=== PATIENT | female | born 1930 | race Caucasian/White ===

== ENCOUNTER 2020-04-13 18:48 | Emergency (ER) | payer MEDICARE, MEDICAID ==
[~2020-04-13] VITALS: Ht 165.1 cm; Wt 72.0 kg
[~2020-04-13 18:48] MED LIST: 2; 2 BP MEDS; AMLODIPINE5 MG PO; ASPIR-8181 MG OR; BABY ASPIRIN81 MG PO; BETAMETH DIP0.05 % EX; CARTIA XT240 MG/24 OR; CIPROFLOXACN500 MG PO; GENTAMICIN 10 MG/ML IV; HUMALOG100 MG/ML; HYDROCHLOROT25 MG PO; LOSARTAN POT50 MG PO; NOVOLOG MIX100 U/ML SC; ONDANSETRON4 MG PO; POT CHLORIDE PO; PRILOSEC20 MG PO; RESTORIL15 MG OR; TENORMIN25 MG PO; WARFARIN3 MG OR; [UNRECOGNIZED DRUG - CODE] PO; [UNRECOGNIZED DRUG - OTHER]; [UNRECOGNIZED DRUG - REMARK]
[2020-04-13] MEDS ORDERED: KEFLEX500 M1 PO (20:02)
[2020-04-13 20:30] VITALS: BP 147/72
== END 2020-04-13 20:56 | disposition home or self-care (01) ==
LOC: ED 18:48
DX: S51.021A Laceration with foreign body of right elbow, initial encounter (principal); E11.9 Type 2 diabetes mellitus without complications; I10 Essential (primary) hypertension; W01.0XXA Fall on same level from slipping, tripping and stumbling without subsequent striking against object, initial encounter; Y92.481 Parking lot as the place of occurrence of the external cause; Z79.4 Long term (current) use of insulin

== ENCOUNTER 2020-12-04 05:02 | Observation (INO) | payer MEDICARE, MEDICAID ==
[~2020-12-04] VITALS: Ht 165.1 cm; Wt 72.0 kg
[~2020-12-04 05:02] MED LIST changes: +KEFLEX500 M1 PO
--- NOTE | 2020-12-04 05:03 | NUR ---
BY EMS TO ROOM. AMBULATED TO STRETCHER
--- NOTE | 2020-12-04 05:35 | NUR ---
Reassessment of patient completed. No distress noted.
[2020-12-04 05:46] LABS: HEMATOCRIT 44.3 % (37.0-47.0); HEMOGLOBIN 14.6 g/dl (12.0-16.0); IMMATURE GRANULOCYTES 0.4 % (0.0-5.0); MEAN CELL VOLUME 90.2 fL CALC (80.0-100.0); MEAN CORPUSCULAR HGB 29.7 pG CALC (26.0-32.0); NEUT# 4.8 thou/uL (2.00-7.15); RED BLOOD COUNT 4.91 mill/uL (4.20-5.60); RED CELL DISTRI WIDTH 13.5 % (11.5-15.5)
[2020-12-04 05:48] LABS: URINE BILIRUBIN - DIPSTICK NEGATIVE (NEGATIVE); URINE BLOOD DIPSTICK TRACE-INTACT (NEGATIVE); URINE COLOR YELLOW; URINE GLUCOSE - DIPSTICK >=1000 mg/dL (NEGATIVE); URINE KETONE NEGATIVE (NEGATIVE); URINE LEUK ESTERASE TRACE (NEGATIVE); URINE PH 6.5 (4.5-8.0); URINE PROTEIN - DIPSTICK NEGATIVE (NEG-TRACE); URINE UROBILINOGEN - DIPSTICK 0.2 E.U./dL (0.2)
[2020-12-04 05:55] LABS: URINE NITRITE - DIPSTICK NEGATIVE (Negative)
[2020-12-04 06:00] LABS: ALKALINE PHOSPHATASE 99 u/l (38-126); BILIRUBIN, TOTAL 0.7 mg/dL (0.0-1.4); BUN 18 mg/dL (8-23); BUN/CREATININE RATIO 33 (12-20 (CALC)); CHLORIDE 94 mmol/l (95-108); CREATININE 0.5 mg/dL (0.5-1.0); GFR > 60 ML/MIN (>=60 (CALC)); GFR FOR AFR.AMER. > 60 ML/MIN (>=60 (CALC)); SGOT/AST 31 u/l (9-36); SODIUM 132 mmol/l (137-146); TOTAL PROTEIN 7.3 g/dL (6.3-8.2)
[2020-12-04 06:01] LABS: MAGNESIUM 1.3 mg/dL (1.6-2.3)
--- NOTE | 2020-12-04 06:02 | NUR ---
Reassessment of patient completed. No distress noted. DAUGHTER IN ROOM WITH PATIENT.
[2020-12-04 06:04] LABS: ACT PARTIAL THROMBO TIME 24.1 SECONDS (20.0-32.5)
[2020-12-04 06:05] LABS: ANION GAP 17 (6-22 (CALC)); CARBON DIOXIDE 25 mmol/l (22-30); POTASSIUM 3.7 mmol/l (3.5-5.1)
[2020-12-04 06:10] LABS: INTERNATIONAL NORMALIZED RATIO 1.1 RATIO (0.7-1.3); PROTHROMBIN TIME 11.5 SECONDS (9.0-12.5)
[2020-12-04 06:14] LABS: MYOGLOBIN 41 ng/mL (0 - 62)
[2020-12-04] MEDS ORDERED: TRESIBA FL100 UNIT/M SC (06:17)
[2020-12-04] MEDS ORDERED: FIASP FLEX100 UNIT/M SC (06:18)
[2020-12-04 06:34] LABS: TSH, 3RD GENERATION 6.75 uIU/mL (0.47 - 4.68)
--- NOTE | 2020-12-04 06:54 | NUR ---
SBAR PRINTED TO FLOOR
--- NOTE | 2020-12-04 07:00 | NUR ---
REPORT RECEIVED FROM ADRYAN HSU. PT PENDING ADMISSION. STABLE. NO CONCERNS VOICED.
--- NOTE | 2020-12-04 07:12 | NUR ---
RECHKD BGL 231
--- NOTE | 2020-12-04 08:00 | NUR ---
BREAKFAST PROVIDED TO PT. DAUGHTER AT BEDSIDE. VITALS STABLE. NO DISTRESS NOTED.
--- NOTE | 2020-12-04 08:37 | NUR ---
PT AMBULATING TO BATHROOM WITH STEADY GAIT.
--- NOTE | 2020-12-04 08:53 | NUR ---
REPORT GIVEN TO ADELA ON [facility].
--- NOTE | 2020-12-04 08:53 | NUR ---
RECIEVED REPORT FROM SEPTEMBER, RN
--- NOTE | 2020-12-04 09:01 | NUR ---
PT ARRIVED TO [facility] ROOM 263 VIA PORTABLE ACCOMPAINED BY ER STAFF WITH DAUGHTER AT BEDSIDE. PT IS A/O X3. ASSESSMENT AND VITALS COMPLETED.BP 169/85, HR 68, O2 94% ON ROOM AIR. RESPIRATIONS ARE EVEN AND UNLABORED ON ROOM AIR. LUNG SOUNDS ARE CLEAR. HEART RHYTYHM IS NORMAL WITH TELE IN PLACE, 8620. RADIAL PULSES STRONG. PEDAL PULSES WEAK. 1+ EDEMA NOTED TO BLE. SKIN INTACT. #22G EMS IN LAC PAINFUL. NEW IV TO BE STARTED.ACCUCHECK REUSLTING IN 136, LEVEMIR ADMINISTERED. PT DENIES OF ANY PAINS OR DISCOMFORTS AT THIS TIME.CHEMICAL MILLING PROCESSOR AWARE OF ALLERGIES, ALLERGY AND FALL RISK BAND APPLIED. PT ORIENTED TO ROOM AND CALL SYSTEM. ALL SAFETY PRECAUTIONS ARE IN PLACE WITH CALL LIGHT IN REACH. WILL CONTINUE TO MONITOR.
[2020-12-04 09:08] VITALS: BP 169/85
--- NOTE | 2020-12-04 10:18 | NUR ---
DR PRESTON AT BEDSIDE
--- NOTE | 2020-12-04 10:43 | NUR ---
NEW #22G STARTED IN RAC, FLUIDS INFUSING PER ORDE SITE REMAINS HEALTHY AND PATENT. #22G IN LAC REMOVED WITH CATAHTER STILL INTACT.
--- NOTE | 2020-12-04 11:12 | NUR ---
ACCUCHECK RELTING IN 66, ORANGE JUICE AND SNACK PROVIDED.
[2020-12-04 13:02] VITALS: BP 175/84
--- NOTE | 2020-12-04 13:05 | NUR ---
REASSESSMENT OF BP REUSLTING IN , HR 69. D.TONE,ANRP NOTFIED. NEW ORDERS TO BE OBTAINED.
[2020-12-04 15:06] VITALS: BP 170/73
--- NOTE | 2020-12-04 15:37 | NUR ---
APRESOLINE IV ADMINISTERED BY ADRYAN GIL
--- NOTE | 2020-12-04 15:43 | NUR ---
PT SLEEPING IN SEMI FOWLERS POSITION. REPSIRATIONS ARE EVEN AND UNLABORED WITH NO DISTRESS NOTED. TELE MONITORING IN PLACE. #22G IN RAC INFUSING WITH IVF PER ORDER, SITE REMAINS HEALTHY AND PATENT. NO SIGNS OF ANY PAINS OR DISCOMFORTS. ALL SAFETY PRECAUTIONS ARE IN PLACE WITH CALL LIGHT IN REACH. WILL CONTINUE TO MONITOR.
[2020-12-04 17:09] VITALS: BP 138/71
--- NOTE | 2020-12-04 17:09 | NUR ---
REASSESSMENT OF BP RUSLTING IN 138/71, HR 67. RESPIRATIONS REMAINS EVEN AND UNLABORED WITH NO DISTRESS NOTED. PT DENIES OF ANY NEEDS AT THISA TIME. ALL SAFETY PRECAUTIONS ARE IN PLACE WITH CALL LIGHT IN REACH. WILL CONTINUE TO MONITOR.
[2020-12-04 19:00] VITALS: BP 162/76
--- NOTE | 2020-12-04 20:00 | NUR ---
PHYSICAL ASSESMENT COMPLETE. PT CURRENTLY DENIES PAIN OR DISCOMFORT. SCHEDULED MEDICATIONS AND PRN MEDICATION ADMINISTERED, SEE E-MAR. PT DENIES ANY NEEDS AT THIS TIME. PLAN OF CARE REVIEWED, PT DENIES QUESTIONS, VERBALIZES UNDERSTANDING. ITEMS WITHIN REACH, BED LOCKED IN LOW POSITION W/ BEDRAILS UP X2. CALL CH WITHIN REACH, AGREES TO CALL PRN.
[2020-12-05] VITALS: BP 161/78
--- NOTE | 2020-12-05 | NUR ---
PT LAYING IN BED WITH EYES CLOSED, APPEARS TO BE SLEEPING, APPEARS COMFORTABLE AND IN NO DISTRESS. RESPIRATIONS REGULAR AND UNLABORED. ITEMS REMAIN WITHIN REACH, CALL CH REMAINS WITHIN REACH. BED REMAINS LOCKED AND IN LOW POSITION WITH BEDRAILS UP X2. WILL CONTINUE TO MONITOR.
[2020-12-05 04:00] VITALS: BP 179/86
--- NOTE | 2020-12-05 04:00 | NUR ---
PT RESTING IN BED, NO SIGNS OF DISTRESS NOTED, RESP EVEN AND UNLABORED. PT VOICES NO NEEDS OR COMPLAINTS AT THIS TIME. CALL LIGHT IN REACH, CONTINUE TO MONITOR.
[2020-12-05 05:00] VITALS: BP 151/62
[2020-12-05 06:44] LABS: HEMATOCRIT 42.3 % (37.0-47.0); HEMOGLOBIN 14.2 g/dl (12.0-16.0); MEAN CELL VOLUME 89.6 fL CALC (80.0-100.0); MEAN CORPUSCULAR HGB 30.1 pG CALC (26.0-32.0); MEAN CORPUSCULAR HGB CONC 33.6 g/dL CAL (32.0-36.0); RED BLOOD COUNT 4.72 mill/uL (4.20-5.60); RED CELL DISTRI WIDTH 13.6 % (11.5-15.5)
--- NOTE | 2020-12-05 07:00 | NUR ---
RECIEVED REPOPRT FROM ADRYAN MARTINEZ
[2020-12-05 07:02] LABS: ANION GAP 11 (6-22 (CALC)); BUN 10 mg/dL (8-23); BUN/CREATININE RATIO 21 (12-20 (CALC)); CARBON DIOXIDE 26 mmol/l (22-30); CHLORIDE 103 mmol/l (95-108); CREATININE 0.5 mg/dL (0.5-1.0); GFR > 60 ML/MIN (>=60 (CALC)); GFR FOR AFR.AMER. > 60 ML/MIN (>=60 (CALC)); POTASSIUM 3.5 mmol/l (3.5-5.1); SODIUM 138 mmol/l (137-146)
[2020-12-05 07:07] LABS: MAGNESIUM 1.7 mg/dL (1.6-2.3)
--- NOTE | 2020-12-05 08:07 | NUR ---
PT. ASSISTED TO BSC WITH MODERATE ASSISTANCE. PT REPORTS NAUSEA. 300 ML CLOUDY YELLOW URINE NOTED. PT ASSISTED BACK TO BED, TOLERATED ACTIVITY WELL. NOTIFIED BY ALDO SIMPSON IN ED OF HR MAX OF 170'S AND 4 BEATS VTACH DURING ACTIVTY TO BSC. ADRYAN CHAPMAN NOTIFIED OF TELE READINGS AND NAUSEA.
--- NOTE | 2020-12-05 08:07 | NUR ---
UROLOGIST CALL STATING PT WAS IN VTACH. UPON ENTERING ROOM PT WAS USING BSC AND STATED SHE WAS HAVINIG NAUSEA BUT WAS OK. RT TO COMPLETE EKG. PT TO BE MEDICATED PER NAUSEA. MD NOTIFIED. ALL SAFETY PRECAUTIONS ARE IN PLACE. WILL CONTINUE TO MONITOR.
--- NOTE | 2020-12-05 08:14 | NUR ---
PT RESTING IN SEMI FOWLERS POSITION. PT IS A/O X3. ASSESSENT AND VITALS COMPLETED. BP 158/70, HR 79, O2 95% ON ROOM AIR. RESPIRATIONS ARE EVEN AND UNLABORED.LUNG SOUNDS ARE CLEAR. HEARTB RHYTHM NORMAL WITH TELE IN PLACE, SR WITH PVCS/ BOWEL SOUNDS ARE ACTIVE. PT REPORTS NAUSEA, PT MEDICATED PER EMAR. #22G RAC INFUSING WITH IV FPER ORDER,, SITE REMAINS HEALTHY AND PATENT. SKIN INTACT. RADIAL AND PEDAL PULSES STRONG. TRACE EDEMA NOTED TO BLE. PT DENIES OF ANY ADDIITONAL NEEDS AT THIS TIME. ALL SAFETY PRECAUTIONS ARE IN PLACE WITH CALL LIGHT IN REACH. WILL CONTINUE TO MONITOR.
--- NOTE | 2020-12-05 08:20 | NUR ---
RT AT BEDSIDE FOR EKG
--- NOTE | 2020-12-05 09:00 | NUR ---
DR PRESTON AT BEDSIDE
--- NOTE | 2020-12-05 10:19 | NUR ---
DAUGHTER UPDATED. PASSCODE PROVIDED.
--- NOTE | 2020-12-05 10:48 | NUR ---
CARD HANGER AT BEDSIDE TO RETURN TO FINISH ECHO
[2020-12-05 12:08] VITALS: BP 151/71
--- NOTE | 2020-12-05 12:21 | NUR ---
PT RESTING IN SEMI FOWLERS POSITION. PT REAMINS A/O X3. RESPIRATIONS ARE EVEN AND UNLABORED WITH NO DITRESS NOTED. #22G RAC INFUSING IWTH IVF PER ORDER, SITE REMAINS HEALTHY AND PATENT. PT STATES SHE STILL HAS NAUSEA. NOTIFIED. NEW ORDER TO BE OBTAINED. ACCUCHECK RESUTLING IN 184, COVERAGE ADMINISTERED. PT DENIES OF ANY OTHER NEEDS AT THIS TIME. ALL SAFETY PRECAUTIONS ARE IN PLACE. WILL CONTINUE TO MONITOR.
[2020-12-05 14:58] VITALS: BP 144/77
--- NOTE | 2020-12-05 15:59 | NUR ---
PT RESTING IN SEMI FOLWERS POSITION WITH DAUGHTER AT BEDSIDE. RESPIRATIONS ARE EVEN AND UNLABORED WITH NO DISTRESS NOTED. #22G RAC INFUSING WITH IVF PERORDER, SITE REMAINS HEALTHY AND PATENT. PT STATES AIDEN HAS HELP. TELE MONITORING IN PLACE. PT DENIES OF ANY ADDITIONAL NEEDS AT THIS TIME. ALL SAFETY PRECAUTIONS ARE IN PLACE WITH CALL LIGHT IN REACH. WILL CONTINUE TO MONITOR.
[2020-12-05 19:00] VITALS: BP 146/74
[2020-12-06] VITALS: BP 158/83
[2020-12-06 04:00] VITALS: BP 170/83
[2020-12-06 04:40] VITALS: BP 145/62
[2020-12-06 05:48] LABS: HEMATOCRIT 42.4 % (37.0-47.0); HEMOGLOBIN 14.2 g/dl (12.0-16.0); MEAN CELL VOLUME 90.4 fL CALC (80.0-100.0); MEAN CORPUSCULAR HGB 30.3 pG CALC (26.0-32.0); MEAN CORPUSCULAR HGB CONC 33.5 g/dL CAL (32.0-36.0); RED BLOOD COUNT 4.69 mill/uL (4.20-5.60); RED CELL DISTRI WIDTH 14.2 % (11.5-15.5)
[2020-12-06 05:52] LABS: ANION GAP 11 (6-22 (CALC)); BUN 14 mg/dL (8-23); BUN/CREATININE RATIO 23 (12-20 (CALC)); CARBON DIOXIDE 28 mmol/l (22-30); CHLORIDE 101 mmol/l (95-108); CREATININE 0.6 mg/dL (0.5-1.0); GFR > 60 ML/MIN (>=60 (CALC)); GFR FOR AFR.AMER. > 60 ML/MIN (>=60 (CALC)); MAGNESIUM 2.1 mg/dL (1.6-2.3); POTASSIUM 3.6 mmol/l (3.5-5.1); SODIUM 137 mmol/l (137-146)
[2020-12-06 07:30] VITALS: BP 132/57
--- NOTE | 2020-12-06 07:35 | NUR ---
PATIENT SITTING UP IN BED AT THIS TIME. DENIES ANY NEEDS CURRENTLY. FLORIST MANAGER DONE AT THIS TIME SEE INTERVENTIONS. PATIENT DEINES ANY PAIN AT THIS TIME. LUNG SHELTON ARE CLEAR AND BOWEL SOUNDS ARE PRESENT IN ALL FOUR QUADS. ACCU CHECK RESULTED IS 105 AND NO COVERAGE NEEDED. PATIENT ON TELE AND BEING MONITORED BY ED.
[2020-12-06 10:30] VITALS: BP 154/62
--- NOTE | 2020-12-06 12:07 | NUR ---
PATIENT RESTING IN BED DENIES ANY NEEDS AND OR PAIN. SIDERAILS ARE UP X 2 CALL LIGHT IS WITHIN REACH TELE MONITOR ON AND BEING MONITORED BY ED.
[2020-12-06] MEDS ORDERED: ELIQUIS2.5 MG PO (13:39)
[2020-12-06] MEDS ORDERED: LOPRESSOR 550 MG/TAB PO (13:40)
[2020-12-06] MEDS ORDERED: SLOW-MAG PO (13:42)
--- NOTE | 2020-12-06 14:57 | NUR ---
PATIENT DC AT THIS TIME. PATIENT VERBALIZES UNDERSTANDING OF D/C INSTRUCITONS DAUGHTER IS AT BEDSIDE IV REMOVED TIP INTACT AND TELE REMOVED AND ED NOTIFIED AT THIS TIME.
--- NOTE | 2020-12-06 15:19 | NUR ---
Discharge instructions given. Patient verbalizes understanding of same. Discharged in stable condition via Wheelchair to Home with family. All belongings sent with pt.
== END 2020-12-06 15:19 | disposition home or self-care (01) ==
LOC: ED 05:02 → ED-I 06:37 → ED 06:50 → MS2 06:51
PROVIDERS: Family Medicine; Nurse Practitioner; ADMIT Internal Medicine; ATTEND Internal Medicine
DX: I48.0 Paroxysmal atrial fibrillation (principal); I47.2 Ventricular tachycardia; E11.65 Type 2 diabetes mellitus with hyperglycemia; E83.42 Hypomagnesemia; I10 Essential (primary) hypertension; I25.10 Atherosclerotic heart disease of native coronary artery without angina pectoris; I08.8 Other rheumatic multiple valve diseases; K21.9 Gastro-esophageal reflux disease without esophagitis; Z79.4 Long term (current) use of insulin; Z20.822 Contact with and (suspected) exposure to COVID-19
CPT/HCPCS: G0378; J1650; J3475

== ENCOUNTER 2021-10-28 02:49 | Observation (INO) | payer MEDICARE, MEDICAID ==
[~2021-10-28] VITALS: Ht 165.1 cm; Wt 70.0 kg
[2021-10-28] VITALS (12 sets, daily range): BP systolic 118–165; BP diastolic 66–91
[~2021-10-28 02:49] MED LIST changes: -AMLODIPINE5 MG PO; +ELIQUIS2.5 MG PO; +FIASP FLEX100 UNIT/M SC; +LOPRESSOR 550 MG/TAB PO; +NORVASC5 M1 PO; -PRILOSEC20 MG PO; +PRILOSEC20 MG/CAP PO; +SLOW-MAG PO; +TRESIBA FL100 UNIT/M SC
[2021-10-28 03:47] LABS: HEMATOCRIT 42.1 % (37.0-47.0); HEMOGLOBIN 13.1 g/dl (12.0-16.0); IMMATURE GRANULOCYTES 0.4 % (0.0-5.0); MEAN CORPUSCULAR HGB 30.1 pG CALC (26.0-32.0); MEAN CORPUSCULAR HGB CONC 31.1 g/dL CAL (32.0-36.0); NEUT# 5.82 thou/uL (2.00-7.15); RED BLOOD COUNT 4.35 mill/uL (4.20-5.60); RED CELL DISTRI WIDTH 13.6 % (11.5-15.5)
[2021-10-28 03:52] LABS: MEAN CELL VOLUME 96.8 fL CALC (80.0-100.0)
[2021-10-28 03:53] LABS: URINE BILIRUBIN - DIPSTICK NEGATIVE (NEGATIVE); URINE BLOOD DIPSTICK SMALL (NEGATIVE); URINE COLOR YELLOW; URINE GLUCOSE - DIPSTICK NEGATIVE (NEGATIVE); URINE KETONE NEGATIVE (NEGATIVE); URINE PH 5.5 (4.5-8.0); URINE SPECIFIC GRAVITY 1.025; URINE UROBILINOGEN - DIPSTICK 0.2 E.U./dL (0.2)
[2021-10-28 03:56] LABS: URINE LEUK ESTERASE SMALL (NEGATIVE); URINE NITRITE - DIPSTICK POSITIVE (Negative)
[2021-10-28 03:57] LABS: URINE PROTEIN - DIPSTICK NEGATIVE (NEG-TRACE)
[2021-10-28 03:59] LABS: URINE BACTERIA MANY hpf; URINE EPITHELIAL CELLS FEW EPI/hpf (0-FEW)
[2021-10-28 04:01] LABS: ALBUMIN 4.1 g/dL (3.2-5.0); ALKALINE PHOSPHATASE 112 u/l (38-126); ANION GAP 15 (6-22 (CALC)); BILIRUBIN, TOTAL 0.9 mg/dL (0.0-1.4); BUN 16 mg/dL (8-23); BUN/CREATININE RATIO 18 (12-20 (CALC)); CARBON DIOXIDE 24 mmol/l (22-30); CHLORIDE 105 mmol/l (95-108); CREATININE 0.9 mg/dL (0.5-1.0); GFR 59 ML/MIN (>=60 (CALC)); GFR FOR AFR.AMER. > 60 ML/MIN (>=60 (CALC)); POTASSIUM 3.6 mmol/l (3.5-5.1); SGOT/AST 32 u/l (9-36); SODIUM 140 mmol/l (137-146); TOTAL PROTEIN 7.2 g/dL (6.3-8.2)
[2021-10-28 04:13] LABS: MYOGLOBIN 93 ng/mL (0 - 62)
[2021-10-28] MEDS ORDERED: ELIQUIS5 MG PO (09:22)
[2021-10-28] MEDS ORDERED: LOSARTAN POTAS100 MG PO (09:23)
[2021-10-28] MEDS ORDERED: NORVASC5 M1 PO (09:37)
[2021-10-28] MEDS ORDERED: OMEPRAZOLE DR20 MG PO (09:38)
[2021-10-28] MEDS ORDERED: COREG6.25 MG PO (09:39)
[2021-10-28] MEDS ORDERED: SPIRONOLACTONE25 MG PO (09:40)
[2021-10-28] MEDS ORDERED: SLOW-MAG PO (09:41)
[2021-10-28] MEDS ORDERED: ATORVASTATIN CA10 MG PO (09:41)
[2021-10-28] MEDS ORDERED: HYDRALAZINE HYD25 MG PO (09:43)
[2021-10-28] MEDS ORDERED: ONDANSETRON4 MG PO (09:45)
[2021-10-28] MEDS ORDERED: TUMS500 MG PO (09:47)
[2021-10-28] MEDS ORDERED: ACETAMINOPHEN325 MG PO (09:49)
[2021-10-28] MEDS ORDERED: TRIAMCINOLON0.11 EX (09:50)
[2021-10-28] MEDS ORDERED: TRAMADOL HCL50 MG PO (09:51)
[2021-10-28] MEDS ORDERED: VITAMIN B-12500 MCG PO (09:51)
[2021-10-29 03:40] VITALS: BP 128/76
[2021-10-29 05:53] LABS: HEMOGLOBIN 12.7 g/dl (12.0-16.0); MEAN CELL VOLUME 98.6 fL CALC (80.0-100.0); MEAN CORPUSCULAR HGB 29.8 pG CALC (26.0-32.0); MEAN CORPUSCULAR HGB CONC 30.2 g/dL CAL (32.0-36.0); RED BLOOD COUNT 4.26 mill/uL (4.20-5.60)
[2021-10-29 06:06] LABS: ANION GAP 10 (6-22 (CALC)); BUN 20 mg/dL (8-23); BUN/CREATININE RATIO 22 (12-20 (CALC)); CARBON DIOXIDE 24 mmol/l (22-30); CHLORIDE 109 mmol/l (95-108); CREATININE 0.9 mg/dL (0.5-1.0); GFR 59 ML/MIN (>=60 (CALC)); GFR FOR AFR.AMER. > 60 ML/MIN (>=60 (CALC)); MAGNESIUM 1.8 mg/dL (1.6-2.3); POTASSIUM 3.9 mmol/l (3.5-5.1); SODIUM 139 mmol/l (137-146)
[2021-10-29 06:11] VITALS: BP 126/72
[2021-10-29] MEDS ORDERED: KEFLEX500 MG PO (09:55)
[2021-10-29 10:31] VITALS: BP 126/72
[2021-10-29] MEDS ORDERED: TAMIFLU30 MG PO (11:03)
[2021-10-29 14:16] VITALS: BP 129/72
== END 2021-10-29 14:57 | disposition home health service (06) ==
LOC: ED 02:49 → ED-I 04:34 → ED 04:50 → MS2 04:51
PROVIDERS: Emergency Medicine; ADMIT Hospitalist; ATTEND Hospitalist
DX: J10.1 Influenza due to other identified influenza virus with other respiratory manifestations (principal); N39.0 Urinary tract infection, site not specified; L30.9 Dermatitis, unspecified; I10 Essential (primary) hypertension; E11.9 Type 2 diabetes mellitus without complications; I48.0 Paroxysmal atrial fibrillation; K21.9 Gastro-esophageal reflux disease without esophagitis; S51.812A Laceration without foreign body of left forearm, initial encounter; X58.XXXA Exposure to other specified factors, initial encounter; B96.20 Unspecified Escherichia coli [E. coli] as the cause of diseases classified elsewhere; Z79.4 Long term (current) use of insulin; Z79.01 Long term (current) use of anticoagulants; Z86.718 Personal history of other venous thrombosis and embolism; Z60.2 Problems related to living alone; Z20.822 Contact with and (suspected) exposure to COVID-19